=== PATIENT | female | born 1995 ===

== ENCOUNTER 2017-03-11 13:28 | Emergency (ER) | payer OTHER ==
[2017-03-11 13:28] VITALS: BMI 20.1
[2017-03-11 13:35] VITALS: BP 114/79; PULSE 85; RESP 20; TEMP 97.6; O2SAT 99
--- NOTE | 2017-03-11 13:55 | ED PDOC ---
HPI: CCC, URI, Sore Throat Time Seen by Provider: 03/11/17 13:37 Chief Complaint (Nursing): ENT Problem Chief Complaint (Provider): left ear pain History/Exam Limitations: no limitations Onset/Duration Of Symptoms: Days (1x week) Current Symptoms Are (Timing): Still Present Location Of Pain: Ear(s) (left ear) Sick Contacts (Context): None Associated Symptoms: denies: Fever, Chills Ear Symptoms: Left: Ear Pain Severity: Moderate Additional Complaint(s): 21 year old female with no pertinent medical history presents to the ED with complaints of left ear pain that started 1x week ago. She reports that a few days ago the pain spontaneously resolved, but started again which is what prompted her visit to the ED today. She reports that she has had right ear pain before several times, but not left ear pain. She reports taking Motrin with no relief. She denies having fevers and chills. PMD: Not provided. Past Medical History Reviewed: Historical Data, Nursing Documentation, Vital Signs Vital Signs: Last Vital Signs Temp 97.6 F 03/11/17 13:33 Pulse 85 03/11/17 13:33 Resp 20 03/11/17 13:33 BP 114/79 03/11/17 13:33 Pulse Ox 99 03/11/17 14:00 - Medical History PMH: No Chronic Diseases - Surgical History Surgical History: No Surg Hx - Family History Family History: States: No Known Family Hx - Social History Current smoker - smoking cessation education provided: No Alcohol: None Drugs: Denies - Home Medications Home Medications: Ambulatory Orders Medication Instructions Recorded Neomycin/Polymyxin/Hydrocort 4 drop AU TID #1 bottle 04/18/15 [Cortisporin Otic Soln] Ciprofloxacin [Cipro] 500 mg PO BID #14 tab 07/07/16 Ciprofloxacin/Dexamethasone 4 drop .ROUTE BID #1 bottle 03/11/17 [Ciprodex 0.3%-0.1% 7.5 Ml] - Allergies Allergies/Adverse Reactions: Allergies Allergy/AdvReac Type Severity Reaction Status Date / Time No Known Allergies Allergy Verified 04/18/15 14:20 Review of Systems ROS Statement: Except As Marked, All Systems Reviewed And Found Negative Constitutional: Negative for: Fever, Chills ENT: Positive for: Ear Pain (left ear pain) Physical Exam - Reviewed Nursing Documentation Reviewed: Yes Vital Signs Reviewed: Yes - Physical Exam Appears: Positive for: Well, Non-toxic, No Acute Distress Head Exam: Positive for: ATRAUMATIC, NORMOCEPHALIC Skin: Positive for: Normal Color, Warm, Dry Eye Exam: Positive for: Normal appearance ENT: Positive for: TM Is/Are (Normal ), Other (left tragal tug, (+) erythema of the left auditory canal) Cardiovascular/Chest: Positive for: Regular Rate, Rhythm Respiratory: Positive for: Normal Breath Sounds. Negative for: Respiratory Distress Back: Positive for: Normal Inspection Extremity: Positive for: Normal ROM Neurologic/Psych: Positive for: Alert, Oriented (3x) - ECG O2 Sat by Pulse Oximetry: 99 (RA) Pulse Ox Interpretation: Normal Medical Decision Making Medical Decision Makin:37 Initial impression: 21 year old female with left ear pain. Scribe Attestation: Documented by Saniya Lombardi, acting as a scribe for Kiesha Cochran PA-C. Provider Scribe Attestation: All medical record entries made by the Scribe were at my direction and personally dictated by me. I have reviewed the chart and agree that the record accurately reflects my personal performance of the history, physical exam, medical decision making, and the department course for this patient. I have also personally directed, reviewed, and agree with the discharge instructions and disposition. Disposition - Clinical Impression Clinical Impression: Otitis externa, left - Patient ED Disposition Is Patient to be Admitted: No - Disposition Disposition: Routine/Home Disposition Time: 14:03 Condition: GOOD Prescriptions: Ciprofloxacin/Dexamethasone [Ciprodex 0.3%-0.1% 7.5 Ml] 4 drop .ROUTE BID #1 bottle Instructions: Otitis Externa (ED)
== END 2017-03-11 14:18 | disposition home or self-care (01) ==
LOC: H.ER 13:28
DX: H60.92 Unspecified otitis externa, left ear (principal)